=== PATIENT | male | born 1970 ===

== ENCOUNTER 2018-12-14 03:23 | Outpatient (CLI) | payer SELFPAY ==
[2018-12-14 07:41] LABS: HEMOGLOBIN A1C 5.5 % (4.5-6.2)
[2018-12-14 08:00] LABS: CHOL/HDL RATIO 5.09 (0.00-4.99)
== END 2018-12-14 23:59 | disposition home or self-care (01) ==
LOC: HW HEART 03:23
DX: Z13.6 Encounter for screening for cardiovascular disorders (principal)
CPT/HCPCS: 36415; G0438